=== PATIENT | female | born 1960 | race Caucasian/White ===

== ENCOUNTER → 2016-09-03 | Outpatient (REF) | payer BC, MEDICARE | LOC: M SFHCCLAY 15:46 | PROVIDERS: ATTEND Family Medicine | DX: E03.9 Hypothyroidism, unspecified (principal); I10 Essential (primary) hypertension ==

== ENCOUNTER → 2017-01-08 | Outpatient (CLI) | payer BC, MEDICARE ==
--- NOTE | 2017-01-08 15:05 | REP ---
PA and lateral chest: Comparison is 02/26/2010. The lung mcarthur are clear. The cardiac size is normal The andrea, mediastinum, and bony thorax are unremarkable. Impression: Negative PA and lateral chest. There is no interval change.
== END ==
LOC: M CLY 14:23
PROVIDERS: ATTEND Family Medicine
DX: J40 Bronchitis, not specified as acute or chronic (principal)

== ENCOUNTER → 2017-03-18 | Outpatient (REF) | payer BC, MEDICARE ==
[2017-03-19 12:27] LABS: ALBUMIN 4.4 GM/DL (3.2-5.2); ALBUMIN/GLOBULIN RATIO 1.57 (1.00-1.93); ALKALINE PHOSPHATASE 38 U/L (45-117); ALT/SGPT 21 U/L (12-78); ANION GAP 8 MEQ/L (8-16); AST/SGOT 10 U/L (15-37); BILIRUBIN,TOTAL 0.3 MG/DL (0.2-1.0); BLOOD UREA NITROGEN 15 MG/DL (7-18); CALCIUM LEVEL 9.2 MG/DL (8.5-10.1); CARBON DIOXIDE LEVEL 30 MEQ/L (21-32); CHLORIDE LEVEL 98 MEQ/L (98-107); CHOLESTEROL LEVEL 173 MG/DL (<200); CREATININE FOR GFR 0.95 MG/DL (0.55-1.02); GLOMERULAR FILTRATION RATE > 60.0 (>51); GLUCOSE, FASTING 88 MG/DL (70-105); POTASSIUM SERUM 4.3 MEQ/L (3.5-5.1); SODIUM LEVEL 136 MEQ/L (136-145); TOTAL PROTEIN 7.2 GM/DL (6.4-8.2); TRIGLYCERIDES LEVEL 219 MG/DL (<150)
== END ==
LOC: M SFHCCLAY 15:01
PROVIDERS: ATTEND Family Medicine
DX: E78.00 Pure hypercholesterolemia, unspecified (principal); E03.9 Hypothyroidism, unspecified

== ENCOUNTER → 2017-07-29 | Outpatient (REF) | payer BC, MEDICARE ==
[2017-07-29 18:01] LABS: HEMATOCRIT 38.4 % (36.0-47.0); HEMOGLOBIN 12.6 g/dl (12.0-16.0); MEAN CORPUSCULAR HEMOGLOBIN 29.4 pg (27.0-33.0); MEAN CORPUSCULAR HGB CONC 32.8 g/dl (32.0-36.5); MEAN CORPUSCULAR VOLUME 89.5 fl (80.0-96.0); PLATELET COUNT, AUTOMATED 315 10^3/uL (150-450); RED BLOOD COUNT 4.29 10^6/uL (4.00-5.40); RED CELL DISTRIBUTION WIDTH 12.4 % (11.5-14.5); WHITE BLOOD COUNT 6.9 10^3/uL (4.0-10.0)
[2017-07-29 18:53] LABS: ALBUMIN 4.3 GM/DL (3.2-5.2); ALBUMIN/GLOBULIN RATIO 1.54 (1.00-1.93); ALKALINE PHOSPHATASE 42 U/L (45-117); ALT/SGPT 16 U/L (12-78); ANION GAP 4 MEQ/L (8-16); AST/SGOT 13 U/L (7-37); BILIRUBIN,TOTAL 0.3 MG/DL (0.2-1.0); BLOOD UREA NITROGEN 15 MG/DL (7-18); CALCIUM LEVEL 9.4 MG/DL (8.5-10.1); CARBON DIOXIDE LEVEL 33 MEQ/L (21-32); CHLORIDE LEVEL 99 MEQ/L (98-107); CREATININE FOR GFR 0.99 MG/DL (0.55-1.30); FREE T4 0.95 NG/DL (0.76-1.46); GLOMERULAR FILTRATION RATE > 60.0 (>51); GLUCOSE, FASTING 93 MG/DL (70-100); POTASSIUM SERUM 4.4 MEQ/L (3.5-5.1); SODIUM LEVEL 136 MEQ/L (136-145); TOTAL PROTEIN 7.1 GM/DL (6.4-8.2)
== END ==
LOC: M SFHCCLAY 12:27
DX: R63.4 Abnormal weight loss (principal)

== ENCOUNTER → 2017-08-11 | Outpatient (REF) | payer BC, MEDICARE | LOC: M LAB REF 18:33 | DX: D23.4 Other benign neoplasm of skin of scalp and neck (principal) | CPT/HCPCS: 88305 ==

== ENCOUNTER → 2017-08-26 | Outpatient (CLI) | payer BC, MEDICARE | LOC: M RAD 15:40 | DX: F17.210 Nicotine dependence, cigarettes, uncomplicated (principal) ==

== ENCOUNTER → 2017-12-22 | Outpatient (REF) | payer BC, MEDICARE ==
[2017-12-23 12:29] LABS: HEMATOCRIT 35.8 % (36.0-47.0); HEMOGLOBIN 11.7 g/dl (12.0-15.5); MEAN CORPUSCULAR HEMOGLOBIN 29.9 pg (27.0-33.0); MEAN CORPUSCULAR HGB CONC 32.7 g/dl (32.0-36.5); MEAN CORPUSCULAR VOLUME 91.6 fl (80.0-96.0); PLATELET COUNT, AUTOMATED 352 10^3/uL (150-450); RED BLOOD COUNT 3.91 10^6/uL (4.00-5.40); RED CELL DISTRIBUTION WIDTH 13.1 % (11.5-14.5); WHITE BLOOD COUNT 7.8 10^3/uL (4.0-10.0)
[2017-12-23 12:38] LABS: ALBUMIN 4.2 GM/DL (3.2-5.2); ALKALINE PHOSPHATASE 44 U/L (45-117); ALT/SGPT 19 U/L (12-78); ANION GAP 7 MEQ/L (8-16); AST/SGOT 13 U/L (7-37); BILIRUBIN,TOTAL 0.4 MG/DL (0.2-1.0); BLOOD UREA NITROGEN 15 MG/DL (7-18); CALCIUM LEVEL 9.2 MG/DL (8.5-10.1); CARBON DIOXIDE LEVEL 31 MEQ/L (21-32); CHLORIDE LEVEL 100 MEQ/L (98-107); CREATININE FOR GFR 0.97 MG/DL (0.55-1.30); GLOMERULAR FILTRATION RATE > 60.0 (>51); GLUCOSE, FASTING 88 MG/DL (70-100); POTASSIUM SERUM 4.1 MEQ/L (3.5-5.1); RHEUMATOID FACTOR QUANT < 10.0 IU/ML (<15.0); SODIUM LEVEL 138 MEQ/L (136-145)
[2017-12-23 14:22] LABS: ERYTHROCYTE SEDIMENTATION RATE 8 mm/hr (0-30)
[2017-12-25 00:14] LABS: CYCLIC CITRULLINATED PEPTIDE 4 units (0-19)
[2017-12-25 00:14] LABS: ANA (HEP2) Negative (.); Lyme Disease IgG/IgM Antibodie <0.91 ISR (0.00-0.90); Lyme Disease IgM Ab Quantitati <0.80 index (0.00-0.79)
== END ==
LOC: M SFHCCLAY 15:04
DX: M25.50 Pain in unspecified joint (principal)
CPT/HCPCS: 80053

== ENCOUNTER → 2018-05-23 | Outpatient (CLI) | payer BC, MEDICARE | LOC: M RAD 16:21 | DX: R91.8 Other nonspecific abnormal finding of lung field (principal) | CPT/HCPCS: 71250 ==

== ENCOUNTER → 2018-08-04 | Outpatient (REF) | payer BC, MEDICARE ==
[2018-08-05 13:02] LABS: HEMATOCRIT 39.1 % (36.0-47.0); HEMOGLOBIN 12.6 g/dl (12.0-15.5); MEAN CORPUSCULAR HEMOGLOBIN 29.6 pg (27.0-33.0); MEAN CORPUSCULAR HGB CONC 32.2 g/dl (32.0-36.5); PLATELET COUNT, AUTOMATED 325 10^3/uL (150-450); RED BLOOD COUNT 4.25 10^6/uL (4.00-5.40); WHITE BLOOD COUNT 8.3 10^3/uL (4.0-10.0)
[2018-08-05 13:32] LABS: ALBUMIN 4.4 GM/DL (3.2-5.2); ALT/SGPT 12 U/L (12-78); BILIRUBIN,TOTAL 0.3 MG/DL (0.2-1.0); BLOOD UREA NITROGEN 13 MG/DL (7-18); CALCIUM LEVEL 9.2 MG/DL (8.5-10.1); CARBON DIOXIDE LEVEL 31 MEQ/L (21-32); CHLORIDE LEVEL 96 MEQ/L (98-107); CREATININE FOR GFR 0.97 MG/DL (0.55-1.30); GLOMERULAR FILTRATION RATE > 60.0 (>51); GLUCOSE, FASTING 96 MG/DL (70-100); POTASSIUM SERUM 3.9 MEQ/L (3.5-5.1); SODIUM LEVEL 133 MEQ/L (136-145); TOTAL PROTEIN 7.1 GM/DL (6.4-8.2)
== END ==
LOC: M SFHCCLAY 16:55
PROVIDERS: ATTEND Family Medicine
DX: R59.1 Generalized enlarged lymph nodes (principal); R63.4 Abnormal weight loss; E03.9 Hypothyroidism, unspecified

== ENCOUNTER → 2018-08-12 | Outpatient (CLI) | payer BC, MEDICARE ==
[~2018-08-12] MED LIST: GASTROGRAFIN SOLUTION 30ML (Q9963) As Ordered ONE; ISOVUE-370 76% 100ML VIAL (Q9967) As Ordered ONE
--- NOTE | 2018-08-12 16:01 | REP ---
Clinical: Lymphadenopathy. Technique: Axial contrast enhanced images from the lung bases to the pubic symphysis using oral (per protocol) and 100 ml Isovue 370 intravenous contrast material with coronal and sagittal re-formations. Comparison: None. Findings: Lung bases are clear. 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 Visualized heart and pericardium are normal. Multiple scattered hepatic hypodensities measuring up to 12 mm likely represent cysts. Spleen, pancreas, gallbladder, bilateral adrenal glands and kidneys are normal. The enteric system is without obstruction or acute inflammatory process. Pelvis demonstrates normal bladder and evidence for prior hysterectomy. No ascites. No free air. No intraperitoneal or retroperitoneal adenopathy. Abdominal aorta without aneurysm or dissection. Musculoskeletal structures demonstrate moderate multilevel degenerative changes including calcified disc material at T11-12 and T12-L1. Impression: 1. Scattered hepatic hypodensities likely representing cysts but essentially too small to characterize. 2. No further acute abdominopelvic pathology appreciated. 3. No ascites, focal inflammatory changes, or adenopathy. Electronically Signed by Frakn Duval MD 08/12/2018 03:52 P
== END ==
LOC: M RAD 12:46
PROVIDERS: ATTEND Family Medicine
DX: R59.1 Generalized enlarged lymph nodes (principal); R93.2 Abnormal findings on diagnostic imaging of liver and biliary tract; R63.4 Abnormal weight loss
CPT/HCPCS: 74177; Q9963; Q9967

== ENCOUNTER → 2018-08-12 | Outpatient (CLI) | payer BC, MEDICARE ==
--- NOTE | 2018-08-12 15:56 | REP ---
Clinical: Follow-up pulmonary nodules. Technique: Axial noncontrast images from the thoracic inlet to the upper abdomen with coronal and sagittal re-formations. Comparison: 05/23/2018, 08/26/2017. Findings: Two subpleural nodules in the posterior medial right lower lobe (image 48) remains stable. No further significant nodule, consolidation, or mass lesion appreciated. Few scattered calcified granuloma identified. No effusion. No pneumothorax. Again bronchial tree is patent. No obvious adenopathy. Mediastinum demonstrates relatively normal / stable thoracic aorta and heart/pericardium. Surrounding musculoskeletal structures stable. Impression: 1. Stable noncalcified nodules in the subpleural right lower lobe. Consider 9-12 month follow-up examination to confirm benignity and stability. 2. No further acute mediastinal or pleuroparenchymal process appreciated. Electronically Signed by Frank Duval MD 08/12/2018 03:48 P
== END ==
LOC: M RAD 12:39
PROVIDERS: ATTEND Internal Medicine Pulmonary Disease
DX: R91.8 Other nonspecific abnormal finding of lung field (principal)

== ENCOUNTER → 2018-08-19 | Outpatient (CLI) | payer BC, MEDICARE ==
--- NOTE | 2018-08-19 08:24 | REP ---
Clinical: Suspected hepatic cysts by CT. Technique: Real time noe scale ultrasound examination using curved array transducer. Findings: The liver is relatively normal in contour, size, and parenchymal echogenicity. Multiple small cysts are identified measuring up to 5 mm which appear relatively benign/simple. Incidental Riedell's lobe noted. The gallbladder is normal and without gallstones, wall thickening, or pericholecystic fluid. No biliary ductal dilatation is appreciated and the common bile duct measures 6.6 mm diameter. The pancreas is incompletely evaluated due to interposed bowel gas. The right kidney is normal in reniform shape and echogenicity without hydronephrosis and measures 10.5 x 5.2 x 3.9 cm. No ascites. Impression: 1. Scattered benign appearing hepatic cysts measuring up to 5 mm. Electronically Signed by Frank Duval MD 08/19/2018 08:15 A
== END ==
LOC: M RAD 06:57
PROVIDERS: ATTEND Family Medicine
DX: R93.2 Abnormal findings on diagnostic imaging of liver and biliary tract (principal)

== ENCOUNTER → 2018-10-21 | Outpatient (REF) | payer BC, MEDICARE ==
[2018-10-21 17:34] LABS: BLOOD UREA NITROGEN 11 MG/DL (7-18); CALCIUM LEVEL 8.7 MG/DL (8.5-10.1); CARBON DIOXIDE LEVEL 29 MEQ/L (21-32); CHLORIDE LEVEL 103 MEQ/L (98-107); CHOLESTEROL LEVEL 150 MG/DL (<200); CHOLESTEROL RISK RATIO 2.678 (<5); CREATININE FOR GFR 0.91 MG/DL (0.55-1.30); GLOMERULAR FILTRATION RATE > 60.0 (>51); GLUCOSE, FASTING 85 MG/DL (70-100); HDL CHOLESTEROL 56 MG/DL (>40); LDL CHOLESTEROL 69 MG/DL (<100); NON-HDL-C 94 MG/DL; POTASSIUM SERUM 4.9 MEQ/L (3.5-5.1); SODIUM LEVEL 138 MEQ/L (136-145); TRIGLYCERIDES LEVEL 127 MG/DL (<150)
== END ==
LOC: M SFHCCLAY 13:10
PROVIDERS: ATTEND Family Medicine
DX: E87.1 Hypo-osmolality and hyponatremia (principal)

== ENCOUNTER → 2019-07-11 | Outpatient (REF) | payer BC, MEDICARE ==
[2019-07-11 17:55] LABS: FREE T4 0.73 NG/DL (0.76-1.46); THYROID STIMULATING HORMONE 3.76 uIU/ML (0.358-3.740)
== END ==
LOC: M SFHCCLAY 11:20
PROVIDERS: ATTEND Family Medicine
DX: E03.9 Hypothyroidism, unspecified (principal); M51.9 Unspecified thoracic, thoracolumbar and lumbosacral intervertebral disc disorder; G89.4 Chronic pain syndrome

== ENCOUNTER → 2020-10-03 | Outpatient (REF) | payer BC, MEDICARE ==
[2020-10-04 11:40] LABS: BASO # 0.1 10^3/uL (0.0-0.2); BASO % 0.7 % (0.0-1.0); EOS # 0.1 10^3/uL (0.0-0.5); LYMPH # 2.4 10^3/uL (1.5-5.0); MEAN CORPUSCULAR HEMOGLOBIN 29.7 pg (27.0-33.0); MEAN CORPUSCULAR HGB CONC 32.5 g/dl (32.0-36.5); MEAN CORPUSCULAR VOLUME 91.3 fl (80.0-96.0); MONO # 0.5 10^3/uL (0.0-0.8); MONO % 6.6 % (2.0-8.0); NEUTROPHILS # 3.8 10^3/uL (1.5-8.5); NEUTROPHILS % 55.4 % (36.0-66.0); PLATELET COUNT, AUTOMATED 316 10^3/uL (150-450); RED BLOOD COUNT 4.38 10^6/uL (4.00-5.40); WHITE BLOOD COUNT 6.8 10^3/uL (4.0-10.0)
[2020-10-04 12:26] LABS: ALBUMIN 4.1 GM/DL (3.2-5.2); ALT/SGPT 22 U/L (12-78); BILIRUBIN,TOTAL 0.4 MG/DL (0.2-1.0); BLOOD UREA NITROGEN 18 MG/DL (7-18); CALCIUM LEVEL 9.5 MG/DL (8.8-10.2); CARBON DIOXIDE LEVEL 29 MEQ/L (21-32); CHLORIDE LEVEL 104 MEQ/L (98-107); CHOLESTEROL LEVEL 185 MG/DL (<200); CHOLESTEROL RISK RATIO 2.803 (<5); CREATININE FOR GFR 0.81 MG/DL (0.55-1.30); GLOMERULAR FILTRATION RATE > 60.0 (>45); GLUCOSE, FASTING 95 MG/DL (70-100); HDL CHOLESTEROL 66 MG/DL (>40); LDL CHOLESTEROL 94 MG/DL (<100); NON-HDL-C 119 MG/DL; POTASSIUM SERUM 5.5 MEQ/L (3.5-5.1); SODIUM LEVEL 137 MEQ/L (136-145); TOTAL PROTEIN 6.8 GM/DL (6.4-8.2); TRIGLYCERIDES LEVEL 127 MG/DL (<150)
== END ==
LOC: M SFHCCLAY 16:06
PROVIDERS: ATTEND Family Medicine
DX: F41.1 Generalized anxiety disorder (principal); I10 Essential (primary) hypertension; E03.9 Hypothyroidism, unspecified; E78.00 Pure hypercholesterolemia, unspecified; J45.30 Mild persistent asthma, uncomplicated

== ENCOUNTER → 2021-09-30 | Outpatient (REF) | payer BC, MEDICARE ==
[2021-09-30 15:59] LABS: HEMATOCRIT 37.9 % (36.0-47.0); HEMOGLOBIN 12.4 g/dl (12.0-15.5); MEAN CORPUSCULAR HEMOGLOBIN 30.5 pg (27.0-33.0); MEAN CORPUSCULAR HGB CONC 32.7 g/dl (32.0-36.5); MEAN CORPUSCULAR VOLUME 93.1 fl (80.0-96.0); PLATELET COUNT, AUTOMATED 324 10^3/uL (150-450); RED BLOOD COUNT 4.07 10^6/uL (4.00-5.40); WHITE BLOOD COUNT 6.1 10^3/uL (4.0-10.0)
[2021-09-30 16:41] LABS: ALBUMIN 4.1 GM/DL (3.2-5.2); ALT/SGPT 22 U/L (12-78); BILIRUBIN,TOTAL 0.5 MG/DL (0.2-1.0); BLOOD UREA NITROGEN 17 MG/DL (7-18); CALCIUM LEVEL 9.5 MG/DL (8.8-10.2); CARBON DIOXIDE LEVEL 30 MEQ/L (21-32); CHLORIDE LEVEL 105 MEQ/L (98-107); CHOLESTEROL LEVEL 200 MG/DL (<200); CHOLESTEROL RISK RATIO 3.076 (<5); CREATININE FOR GFR 0.96 MG/DL (0.55-1.30); FREE T4 0.94 NG/DL (0.76-1.46); GLOMERULAR FILTRATION RATE > 60.0 (>45); GLUCOSE, FASTING 80 MG/DL (70-100); HDL CHOLESTEROL 65 MG/DL (>40); LDL CHOLESTEROL 99 MG/DL (<100); NON-HDL-C 135 MG/DL; POTASSIUM SERUM 4.7 MEQ/L (3.5-5.1); SODIUM LEVEL 139 MEQ/L (136-145); TOTAL PROTEIN 6.7 GM/DL (6.4-8.2); TRIGLYCERIDES LEVEL 178 MG/DL (<150)
== END ==
LOC: M SFHCCLAY 11:50
PROVIDERS: ATTEND Family Medicine
DX: F41.1 Generalized anxiety disorder (principal); I10 Essential (primary) hypertension; E03.9 Hypothyroidism, unspecified

== ENCOUNTER → 2021-12-08 | Outpatient (CLI) | payer BC, MEDICARE | LOC: M RAD 13:41 | PROVIDERS: ATTEND Family Medicine | DX: Z12.2 Encounter for screening for malignant neoplasm of respiratory organs (principal); Z87.891 Personal history of nicotine dependence ==

== ENCOUNTER → 2022-02-02 | Outpatient (CLI) | payer MEDICARE | LOC: M PLARAD 08:02 | PROVIDERS: ATTEND Family Medicine | DX: R91.8 Other nonspecific abnormal finding of lung field (principal) | CPT/HCPCS: 78816; A9552 ==

== ENCOUNTER → 2022-12-11 | Outpatient (REF) | payer MEDICARE ==
[2022-12-11 17:48] LABS: BASO # 0.1 10^3/uL (0.0-0.2); EOS # 0.2 10^3/uL (0.0-0.5); EOS % 2.9 % (0.0-3.0); HEMATOCRIT 39.9 % (36.0-47.0); HEMOGLOBIN 12.7 g/dl (12.0-15.5); LYMPH # 1.8 10^3/uL (1.5-5.0); LYMPH % 28.9 % (24.0-44.0); MEAN CORPUSCULAR HEMOGLOBIN 29.1 pg (27.0-33.0); MEAN CORPUSCULAR HGB CONC 31.8 g/dl (32.0-36.5); MEAN CORPUSCULAR VOLUME 91.3 fl (80.0-96.0); MONO # 0.6 10^3/uL (0.0-0.8); MONO % 9.3 % (2.0-8.0); NEUTROPHILS # 3.6 10^3/uL (1.5-8.5); NEUTROPHILS % 57.7 % (36.0-66.0); PLATELET COUNT, AUTOMATED 329 10^3/uL (150-450); RED BLOOD COUNT 4.37 10^6/uL (4.00-5.40); WHITE BLOOD COUNT 6.3 10^3/uL (4.0-10.0)
[2022-12-11 17:53] LABS: ALKALINE PHOSPHATASE 61 U/L (46-116); ALT/SGPT 28 U/L (7.0-40); AST/SGOT 17 U/L (<34); BILIRUBIN,TOTAL 0.3 MG/DL (0.3-1.2); BLOOD UREA NITROGEN 17 MG/DL (9-23); CALCIUM LEVEL 9.1 MG/DL (8.3-10.6); CARBON DIOXIDE LEVEL 28 MMOL/L (20-31); CHLORIDE LEVEL 109 MMOL/L (98-107); CHOLESTEROL LEVEL 167 MG/DL (<200); CREATININE FOR GFR 0.99 MG/DL (0.55-1.30); GLOMERULAR FILTRATION RATE > 60.0 (>45); GLUCOSE, FASTING 94 MG/DL (74-106); LDL CHOLESTEROL 77.8 MG/DL (<100); POTASSIUM SERUM 4.4 MMOL/L (3.5-5.1); SODIUM LEVEL 140 MMOL/L (136-145); TOTAL PROTEIN 6.5 G/DL (5.7-8.2); TRIGLYCERIDES LEVEL 126 MG/DL (<150)
[2022-12-11 18:06] LABS: THYROID STIMULATING HORMONE 2.226 uIU/ML (0.55-4.78)
== END ==
LOC: M SFHCCLAY 10:39
PROVIDERS: ATTEND Family Medicine
DX: F41.1 Generalized anxiety disorder (principal); I10 Essential (primary) hypertension; E03.9 Hypothyroidism, unspecified; J45.30 Mild persistent asthma, uncomplicated

== ENCOUNTER → 2023-06-18 | Outpatient (REF) | payer OTHER, MEDICARE ==
[2023-06-21 12:35] LABS: RSV AMPLIFICATION POSITIVE (NEGATIVE)
== END ==
LOC: M SFHCCLAY 11:14
PROVIDERS: ATTEND Family Medicine
DX: B34.9 Viral infection, unspecified (principal)

== ENCOUNTER → 2024-01-21 | Outpatient (REF) | payer MEDICARE ==
[2024-01-21 18:05] LABS: HEMATOCRIT 39.5 % (36.0-47.0); HEMOGLOBIN 12.6 g/dl (12.0-15.5); MEAN CORPUSCULAR HEMOGLOBIN 29.3 pg (27.0-33.0); MEAN CORPUSCULAR HGB CONC 31.9 g/dl (32.0-36.5); MEAN CORPUSCULAR VOLUME 91.9 fl (80.0-96.0); PLATELET COUNT, AUTOMATED 287 10^3/uL (150-450); WHITE BLOOD COUNT 6.3 10^3/uL (4.0-10.0)
[2024-01-21 18:10] LABS: ALBUMIN 3.9 G/DL (3.2-5.2); BILIRUBIN,TOTAL 0.4 MG/DL (0.3-1.2); CALCIUM LEVEL 9.1 MG/DL (8.3-10.6); CHOLESTEROL RISK RATIO 2.97 (<5); CREATININE FOR GFR 1.08 MG/DL (0.55-1.30); FREE T4 1.24 NG/DL (0.89-1.76); GLOMERULAR FILTRATION RATE 54.5 (>45); HDL CHOLESTEROL 60.8 MG/DL (>40); LDL CHOLESTEROL 96.8 MG/DL (<100); NON-HDL-C 120.2 MG/DL; POTASSIUM SERUM 4.9 MMOL/L (3.5-5.1); THYROID STIMULATING HORMONE 1.235 uIU/ML (0.55-4.78); TOTAL PROTEIN 6.6 G/DL (5.7-8.2)
== END ==
LOC: M SFHCCLAY 13:31
PROVIDERS: ATTEND Family Medicine
DX: F41.1 Generalized anxiety disorder (principal); I10 Essential (primary) hypertension; E03.9 Hypothyroidism, unspecified

== ENCOUNTER → 2024-02-03 | Outpatient (CLI) | payer MEDICARE | LOC: M PLAIMG 14:45 | PROVIDERS: ATTEND Family Medicine | DX: G44.009 Cluster headache syndrome, unspecified, not intractable (principal) ==

== ENCOUNTER → 2024-02-03 | Outpatient (CLI) | payer MEDICARE | LOC: M WHC 13:52 | PROVIDERS: ATTEND Family Medicine | DX: Z12.31 Encounter for screening mammogram for malignant neoplasm of breast (principal); R92.333 Mammographic heterogeneous density, bilateral breasts ==

== ENCOUNTER → 2024-02-15 | Outpatient (CLI) | payer MEDICARE | LOC: M RAD 16:07 | PROVIDERS: ATTEND Family Medicine | DX: Z12.2 Encounter for screening for malignant neoplasm of respiratory organs (principal); F17.210 Nicotine dependence, cigarettes, uncomplicated ==

== ENCOUNTER → 2024-02-21 | Outpatient (CLI) | payer MEDICARE | LOC: M PLAIMG 14:23 | PROVIDERS: ATTEND Family Medicine | DX: R93.89 Abnormal findings on diagnostic imaging of other specified body structures (principal); I67.1 Cerebral aneurysm, nonruptured ==

== ENCOUNTER → 2025-02-27 | Outpatient (CLI) | payer MEDICARE | LOC: M CLY 10:39 | PROVIDERS: ATTEND Nurse Practitioner Family | DX: M17.11 Unilateral primary osteoarthritis, right knee (principal); M25.461 Effusion, right knee ==

== ENCOUNTER → 2025-02-27 | Outpatient (REF) | payer MEDICARE ==
[2025-02-27 19:08] LABS: ESTIMATED AVERAGE GLUCOSE 111.0 MG/DL (60-110)
[2025-02-27 19:23] LABS: ALT/SGPT 23.0 U/L (7.0-40); AST/SGOT 14.0 U/L (<34); CALCIUM LEVEL 9.1 MG/DL (8.3-10.6); CARBON DIOXIDE LEVEL 25.0 MMOL/L (20-31); CHLORIDE LEVEL 107.0 MMOL/L (98-107); CHOLESTEROL LEVEL 171.0 MG/DL (<200); CHOLESTEROL RISK RATIO 2.54 (<5); CREATININE FOR GFR 1.17 MG/DL (0.55-1.30); GLOMERULAR FILTRATION RATE 52.1 (>45); LDL CHOLESTEROL 70.1 MG/DL (<100); NON-HDL-C 103.7 MG/DL; POTASSIUM SERUM 4.7 MMOL/L (3.5-5.1); SODIUM LEVEL 139.0 MMOL/L (136-145); TRIGLYCERIDES LEVEL 168.0 MG/DL (<150)
[2025-02-27 19:28] LABS: FREE T4 1.25 NG/DL (0.89-1.76)
== END ==
LOC: EDBD → M SFHCCLAY 09:35
PROVIDERS: ATTEND Nurse Practitioner Family
DX: F41.1 Generalized anxiety disorder (principal); I10 Essential (primary) hypertension; E03.9 Hypothyroidism, unspecified; M51.9 Unspecified thoracic, thoracolumbar and lumbosacral intervertebral disc disorder; G43.909 Migraine, unspecified, not intractable, without status migrainosus; I67.1 Cerebral aneurysm, nonruptured; E78.00 Pure hypercholesterolemia, unspecified; J45.20 Mild intermittent asthma, uncomplicated

== ENCOUNTER → 2025-03-16 | Outpatient (CLI) | payer MEDICARE | LOC: M WHC 10:33 | PROVIDERS: ATTEND Nurse Practitioner Family | DX: Z12.31 Encounter for screening mammogram for malignant neoplasm of breast (principal); M81.0 Age-related osteoporosis without current pathological fracture ==

== ENCOUNTER → 2025-04-10 | Outpatient (CLI) | payer MEDICARE | LOC: M RAD 10:09 | PROVIDERS: ATTEND Nurse Practitioner Family | DX: R91.8 Other nonspecific abnormal finding of lung field (principal); J84.10 Pulmonary fibrosis, unspecified; F17.210 Nicotine dependence, cigarettes, uncomplicated ==

== ENCOUNTER → 2025-04-12 | Outpatient (CLI) | payer MEDICARE | LOC: M WHC 10:14 | PROVIDERS: ATTEND Nurse Practitioner Family | DX: R92.8 Other abnormal and inconclusive findings on diagnostic imaging of breast (principal) | CPT/HCPCS: 77065; G0279 ==

== ENCOUNTER → 2025-05-16 | Outpatient (CLI) | payer MEDICARE | LOC: M RAD 07:21 | PROVIDERS: ATTEND Nurse Practitioner Family | DX: K76.9 Liver disease, unspecified (principal) ==